=== PATIENT | female | born 1985 | race African-American/Black ===

== ENCOUNTER 2023-11-25 10:00 | Emergency (ER) | payer SELFPAY ==
[~2023-11-25] VITALS: Ht 170.2 cm; Wt 70.0 kg
[2023-11-25 10:09] VITALS: O2SAT 100
[2023-11-25 10:54] LABS: BASOPHILS % 0.4 % (0.0-2.0); EOSINOPHILS % 2.6 % (0.0-5.0); HEMATOCRIT. 41.5 % (36.0-48.0); LYMPHOCYTES % 35.7 % (20.0-50.0); MEAN CORPUSCULAR HEMOGLOBIN 28.5 pg (28.0-32.0); MEAN CORPUSCULAR HGB CONC 33.7 g/dL (31.0-37.0); MEAN CORPUSCULAR VOLUME 84.5 fL (81.0-99.0); MEAN PLATELET VOLUME 7.7 fl (7.4-10.4); MONOCYTES % 5.6 % (2.0-8.0); NEUTROPHILS % 55.7 % (40.0-76.0); PLATELET 277 x1000/uL (130-400); RED CELL DISTRIBUTION WIDTH 13.8 % (11.6-14.6); WHITE BLOOD COUNT 8.2 x1000/uL (4.5-11.0)
[2023-11-25 10:58] LABS: CLARITY URINE CLOUDY (CLEAR); COLOR URINE YELLOW (YELLOW); GLUCOSE URINE NEGATIVE (NEGATIVE); KETONES URINE NEGATIVE (NEGATIVE); LEUKOCYTE ESTERASE URINE 3+ (NEGATIVE); NITRITE URINE NEGATIVE (NEGATIVE); OCCULT BLOOD URINE TRACE (NEGATIVE); PROTEIN URINE NEGATIVE (NEGATIVE); SPECIFIC GRAVITY URINE 1.015 (1.005-1.030); UROBILINOGEN URINE 0.2 E.U./dL (0.2-1.0)
[2023-11-25 11:02] LABS: HCG SCREEN NEGATIVE
[2023-11-25 11:09] LABS: ALANINE AMINOTRANSFERASE 23 IU/L (10-49); ALBUMIN 4.7 g/dL (3.2-4.8); ASPARTATE AMINOTRANSFERASE 20 IU/L (<34); BILIRUBIN TOTAL 0.3 mg/dL (0.1-1.0); CALCIUM 9.6 mg/dL (8.7-10.4); CARBON DIOXIDE 26 mEq/L (21-32); CHLORIDE 104 mEq/L (98-107); CREATININE 0.9 mg/dL (0.6-1.0); GLUCOSE 103 mg/dL (70-105); POTASSIUM 4.2 mEq/L (3.5-5.1); PROTEIN TOTAL 7.3 g/dL (6.0-8.3); SODIUM 135 mEq/L (136-145); UREA NITROGEN BLOOD 9 mg/dL (9-23)
[2023-11-25 11:23] LABS: BACTERIA URINE 1+; SQUAMOUS EPITHELIAL CELL URINE 3+ /lpf (RARE/1+); TRICHOMONAS URINE FEW; YEAST URINE NONE SEEN
[2023-11-25] MEDS ORDERED: NITR-87 MT (11:36)
[2023-11-25] MEDS ORDERED: METR-167 MT (11:36)
[2023-11-25] MEDS ORDERED: CEPH500C2 MT (11:42)
[2023-11-25 12:06] VITALS: BP 120/78; PULSE 92; RESP 18; TEMP 98.3
== END 2023-11-25 12:10 | disposition home or self-care (01) ==
LOC: ER 10:00
DX: A59.01 Trichomonal vulvovaginitis (principal); M25.531 Pain in right wrist; N39.0 Urinary tract infection, site not specified
CPT/HCPCS: 36415; 71045; 73110; 80053; 81003; 81025; 83880; 84703; 85025; 99284

== ENCOUNTER 2024-04-17 14:02 | Emergency (ER) | payer SELFPAY ==
[~2024-04-17] VITALS: Ht 165.1 cm; Wt 85.0 kg
[~2024-04-17 14:02] MED LIST: CEPH500C2 MT; METR-167 MT
[2024-04-17 14:09] VITALS: O2SAT 98
[2024-04-17 14:48] LABS: CLARITY URINE CLEAR (CLEAR); COLOR URINE YELLOW (YELLOW); GLUCOSE URINE NEGATIVE (NEGATIVE); KETONES URINE 1+ (NEGATIVE); LEUKOCYTE ESTERASE URINE NEGATIVE (NEGATIVE); NITRITE URINE NEGATIVE (NEGATIVE); OCCULT BLOOD URINE TRACE (NEGATIVE); PH URINE 5.5 (4.5-8.0); PROTEIN URINE NEGATIVE (NEGATIVE); SPECIFIC GRAVITY URINE 1.019 (1.005-1.030); UROBILINOGEN URINE 0.2 E.U./dL (0.2-1.0)
[2024-04-17] MEDS: KETOROLAC 30MG/ML VIAL IM ONE (14:52)
[2024-04-17] MEDS: CYCLOBENZAPRINE 10MG TABLET PO ONE (14:52)
[2024-04-17 15:09] LABS: SQUAMOUS EPITHELIAL CELL URINE FEW /lpf (RARE/1+)
[2024-04-17 15:10] LABS: BACTERIA URINE NONE SEEN; RBC URINE NONE SEEN /hpf (0-2); WBC URINE 0-2 /hpf (0-2)
[2024-04-17] MEDS ORDERED: LIDO700A15 TP (15:42)
[2024-04-17] MEDS ORDERED: TOPUD MT (15:42)
[2024-04-17] MEDS ORDERED: CYCL5TAB MT (15:42)
[2024-04-17] MEDS ORDERED: NAPR-679 MT (15:42)
[2024-04-17 16:04] VITALS: BP 119/70; PULSE 80; RESP 16; TEMP 98.3
== END 2024-04-17 16:34 | disposition home or self-care (01) ==
LOC: ER 14:02
DX: M54.50 Low back pain, unspecified (principal)
CPT/HCPCS: 81003; 96372; 99283; J1885; Z7610

== ENCOUNTER 2025-06-02 13:44 | Emergency (ER) | payer MEDICAID ==
[~2025-06-02] VITALS: Ht 165.1 cm; Wt 80.0 kg
[~2025-06-02 13:44] MED LIST changes: +CYCL5TAB3 MT; +LIDO-53 TP; +NAPR-679 MT; +TOPUD MT
[2025-06-02 13:51] VITALS: TEMP 36.9; O2SAT 99
[2025-06-02 16:28] LABS: BASOPHILS % 0.4 % (0.0-2.0); EOSINOPHILS % 3.3 % (0.0-5.0); HEMATOCRIT. 41.8 % (36.0-48.0); HEMOGLOBIN. 13.7 g/dL (12.0-16.0); LYMPHOCYTES % 43.7 % (20.0-50.0); MEAN PLATELET VOLUME 7.9 fl (7.4-10.4); MONOCYTES % 8.8 % (2.0-8.0); NEUTROPHILS % 43.8 % (40.0-76.0); PLATELET 241 x1000/uL (130-400); RED BLOOD CELL COUNT 4.92 mill/uL (4.2-5.4); RED CELL DISTRIBUTION WIDTH 13.5 % (11.6-14.6)
[2025-06-02 16:40] LABS: CREATININE 0.9 mg/dL (0.6-1.0)
[2025-06-02 16:41] LABS: UREA NITROGEN BLOOD 10 mg/dL (9-23)
[2025-06-02 16:42] LABS: ASPARTATE AMINOTRANSFERASE 18 IU/L (<34); BILIRUBIN DIRECT 0.1 mg/dL (<=3.0)
[2025-06-02 16:43] LABS: BILIRUBIN TOTAL 0.4 mg/dL (0.1-1.0); PROTEIN TOTAL 7.4 g/dL (6.0-8.3)
[2025-06-02] MEDS ORDERED: MUPI1OIN4 TP (17:53)
[2025-06-02] MEDS ORDERED: CLIN-116 MT (17:53)
[2025-06-02 18:20] VITALS: BP 122/84; PULSE 91; RESP 18; O2SAT 100
== END 2025-06-02 18:35 | disposition home or self-care (01) ==
LOC: ER 13:44
DX: L01.00 Impetigo, unspecified (principal); L29.9 Pruritus, unspecified; Z79.1 Long term (current) use of non-steroidal anti-inflammatories (NSAID); Z79.899 Other long term (current) drug therapy
CPT/HCPCS: 36415; 80048; 80076; 83735; 85025; 99283